=== PATIENT | female | born 1955 | race African-American/Black ===

== ENCOUNTER 2021-11-02 11:20 | Outpatient (CLI) | payer OTHER | END 2021-11-02 11:21 | disposition home or self-care (01) | LOC: CSHMAMMO 11:20 | PROVIDERS: ATTEND Family Medicine | DX: Z12.31 Encounter for screening mammogram for malignant neoplasm of breast (principal) | CPT/HCPCS: 77063; 77067 ==

== ENCOUNTER 2022-12-05 09:51 | Outpatient (CLI) | payer OTHER | END 2022-12-05 09:52 | disposition home or self-care (01) | LOC: CSHMAMMO 09:51 | PROVIDERS: ATTEND Student in an Organized Health Care Education/Training Program | DX: Z12.31 Encounter for screening mammogram for malignant neoplasm of breast (principal) | CPT/HCPCS: 77063; 77067 ==

== ENCOUNTER 2023-09-05 10:40 | Outpatient (CLI) | payer OTHER | END 2023-09-05 10:41 | disposition home or self-care (01) | LOC: CSHMAMMO 10:40 | PROVIDERS: ATTEND Student in an Organized Health Care Education/Training Program | DX: Z13.820 Encounter for screening for osteoporosis (principal) | CPT/HCPCS: 77080 ==

== ENCOUNTER 2024-01-06 09:01 | Outpatient (CLI) | payer OTHER | END 2024-01-06 09:02 | disposition home or self-care (01) | LOC: CSHMAMMO 09:01 | PROVIDERS: ATTEND Student in an Organized Health Care Education/Training Program | DX: Z12.31 Encounter for screening mammogram for malignant neoplasm of breast (principal) | CPT/HCPCS: 77063; 77067 ==

== ENCOUNTER 2024-01-10 09:32 | Outpatient (CLI) | payer OTHER | END 2024-01-10 09:33 | disposition home or self-care (01) | LOC: CSHCT 09:32 | PROVIDERS: ATTEND Student in an Organized Health Care Education/Training Program | DX: Z12.2 Encounter for screening for malignant neoplasm of respiratory organs (principal); Z87.891 Personal history of nicotine dependence; I25.10 Atherosclerotic heart disease of native coronary artery without angina pectoris; I25.84 Coronary atherosclerosis due to calcified coronary lesion | CPT/HCPCS: 71271 ==